=== PATIENT | male | born 1995 ===

== ENCOUNTER 2017-06-05 18:19 | Emergency (ER) | payer SELFPAY ==
[2017-06-05 18:44] VITALS: RESP 20
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
[2017-06-05] MEDS ORDERED: Bacitracin 500 Units/gm Oint Foilpak UD TOP ONE (19:06)
[2017-06-05] MEDS ORDERED: Bacitracin 500 Units/gm Oint Foilpak UD ONE (19:21)
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
[2017-06-05 21:31] VITALS: BP 122/85; PULSE 116; TEMP 98.6
[2017-06-05 21:45] VITALS: O2SAT 100
--- NOTE | 2017-06-06 07:35 | RAD ---
PROCEDURE: Left Knee Radiographs. HISTORY: Pain. COMPARISON: Subsequent left knee CT without contrast 06/05/2017. FINDINGS: BONES: Nondisplaced comminuted fracture of the lateral tibial plateau is appreciated involving the articular surface. No subluxation or dislocation. JOINTS: Normal. No osteoarthritis. JOINT EFFUSION: A [id number] effusion is appreciated at the suprapatellar bursa. OTHER FINDINGS: None. IMPRESSION: Nondisplaced articular fracture involving the lateral tibial plateau proximal left tibia. No dislocation. [id number] suprapatellar bursa effusion. Please see separate left knee CT examination 06/05/2017 which also demonstrates medial tibial plateau nondisplaced fracture.
== END 2017-06-05 21:58 | disposition home or self-care (01) ==
LOC: C.ER 18:19
DX: S82.142A Displaced bicondylar fracture of left tibia, initial encounter for closed fracture (principal); V19.3XXA Pedal cyclist (driver) (passenger) injured in unspecified nontraffic accident, initial encounter; Z23 Encounter for immunization